=== PATIENT | male | born 1995 | race Caucasian/White ===

== ENCOUNTER 2022-10-18 16:22 | Emergency (ER) | payer OTHER ==
[~2022-10-18] VITALS: Ht 172.7 cm; Wt 84.1 kg
[2022-10-18] MEDS ORDERED: LIDOCAINE 1% 10 ML VIAL SQ ONE (17:15)
[2022-10-18] MEDS ORDERED: SODIUM CHLORIDE 0.9% 1,000 ML IV ONE (17:30)
[2022-10-18 17:52] LABS: BASOPHILS % (AUTO) 1.2 % (0.0-2.0); EOSINOPHILS % (AUTO) 4.4 % (1.0-6.0); HEMATOCRIT 46.1 % (41-53); LYMPHOCYTES % (AUTO) 22.2 % (22.0-44.0); MEAN CORPUSCULAR HEMOGLOBIN 32.4 pg (26.0-34.0); MEAN CORPUSCULAR HGB CONC 34.6 G/dL (31.0-37.0); MEAN CORPUSCULAR VOLUME 94 fL (80-100); MONOCYTES # (AUTO) 0.7 K/uL (0.1-1.0); NEUTROPHILS # (AUTO) 5.7 K/uL (1.8-7.7); NEUTROPHILS % (AUTO) 64.2 % (40.0-70.0); PLATELET COUNT (AUTO) 299 K/uL (150-450); RED BLOOD CELL COUNT(AUTO) 4.93 MIL/uL (4.50-5.90); RED CELL DISTRIBUTION WIDTH 13.3 % (11.5-14.5)
[2022-10-18 18:08] LABS: ANION GAP 8 mmol/L (8-16); CALCIUM, TOTAL 8.5 mg/dL (8.8-10.5); CARBON DIOXIDE 29 mmol/L (22-29); CHLORIDE 101 mmol/L (98-107); CREATININE 0.62 mg/dL (0.60-1.30); GLOMERULAR FILTR. RATE CALC > 60 mL/min (>60); GLUCOSE,RANDOM 113 mg/dL (70-110); POTASSIUM 3.1 mmol/L (3.5-5.1); SODIUM SERUM 138 mmol/L (136-145); UREA NITROGEN, BLOOD 3 mg/dL (7-18)
[2022-10-18 18:13] LABS: ALANINE AMINOTRANSFERASE 493 U/L (12-78); ALBUMIN 4.2 g/dL (3.4-5.0); ALKALINE PHOSPHATASE 144 U/L (46-116); ASPARTATE AMINOTRANSFERASE 483 U/L (15-37); BILIRUBIN,TOTAL 0.5 mg/dL (0.1-1.0); TOTAL PROTEIN, SERUM 8.8 g/dL (6.4-8.2)
[2022-10-18 18:30] VITALS: BP 136/77
[2022-10-18] MEDS ORDERED: BACITRACIN 0.9 GM PACKET OINTMENT TP ONE (18:45)
[2022-10-18] MEDS ORDERED: CEPH-558 PO (19:03)
== END 2022-10-18 19:14 | disposition home or self-care (01) ==
LOC: EMS 16:26
DX: S01.81XA Laceration without foreign body of other part of head, initial encounter (principal); F10.129 Alcohol abuse with intoxication, unspecified; V98.8XXA Other specified transport accidents, initial encounter; Y93.89 Activity, other specified; Y92.89 Other specified places as the place of occurrence of the external cause; Y99.8 Other external cause status; Y90.9 Presence of alcohol in blood, level not specified
CPT/HCPCS: 99284; 80053; 85025; 72040; 12013; G0480; J3490; J7030

== ENCOUNTER 2022-10-29 12:25 | Emergency (ER) | payer OTHER ==
[~2022-10-29] VITALS: Ht 167.6 cm; Wt 90.9 kg
[~2022-10-29 12:25] MED LIST: CEPH-558 PO
[2022-10-29 13:33] VITALS: BP 139/93
== END 2022-10-29 13:38 | disposition home or self-care (01) ==
LOC: EMS 12:39
DX: S01.81XD Laceration without foreign body of other part of head, subsequent encounter (principal); Z48.02 Encounter for removal of sutures; X58.XXXD Exposure to other specified factors, subsequent encounter
CPT/HCPCS: 99282; Z7502